=== PATIENT | female | born 2000 | race Caucasian/White ===

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

== ENCOUNTER 2021-06-02 23:40 | Emergency (ER) | payer OTHER ==
[~2021-06-02] VITALS: Ht 177.8 cm; Wt 68.2 kg
[2021-06-02 23:48] VITALS: TEMP 97.7
[2021-06-03] MEDS ORDERED: CEPHALEXIN500 M1 PO (00:08)
[2021-06-03 00:14] VITALS: BP 140/78; PULSE 82
== END 2021-06-03 00:15 | disposition home or self-care (01) ==
LOC: COL.ER 23:40
DX: S61.211A Laceration without foreign body of left index finger without damage to nail, initial encounter (principal); W26.9XXA Contact with unspecified sharp object(s), initial encounter